=== PATIENT | female | born 1955 | race African-American/Black ===

== ENCOUNTER 2021-11-16 16:57 | Inpatient (IN) ==
[2021-11-16] MEDS ORDERED: NOREPINEPHRINE 8 MG in SODIUM CHLORIDE 0.9% 242 ML IV PRN (17:28)
[2021-11-16] MEDS ORDERED: ALBUTEROL/IPRATROPIUM 3 ML NEB RESP TX PRN (20:27)
[2021-11-16] MEDS ORDERED: ALBUTEROL/IPRATROPIUM 3 ML NEB RESP TX ONE (20:31)
[2021-11-16] MEDS: carvediloL 6.25 MG TABLET PO SCH (22:44)
[2021-11-16] MEDS: MIDODRINE 5 MG TABLET PO SCH (22:44)
[2021-11-17 03:09] LABS: Basophils % 0.1 % (0.0-0.8); Hematocrit 28.6 VOL% (35.7-47.0); Immature Granulocytes % 0.6 %; Immature Granulocytes Absolute 0.06 #; Lymphocytes # 0.6 10*3/uL (1.4-4.0); Lymphocytes % 6.1 % (21.3-54.2); Mean Corpuscular HGB Conc 31.5 GM/DL (32-36); Mean Corpuscular Volume 77.3 FL (87-102); Monocytes # 0.4 10*3/uL (0.11-0.8); Monocytes % 4.7 % (1.7-12.7); NRBC # 0.06 10*3/uL; Neutrophils % 88.5 % (38.7-73.9); Platelet Count 137 T/CUMM (130-400); Red Cell Distribution Width 18.6 % (9.3-17.3); White Blood Count 9.4 T/CUMM (4-12)
[2021-11-17 03:18] LABS: INR 1.2; PT Patient Result 13.4 SECS (10.5-12.0)
[2021-11-17 03:40] LABS: Albumin 2.6 G/DL (3.4-5.0); Bilirubin,Total 0.9 MG/DL (0.20-1.00); Calcium 8.6 MG/DL (8.5-10.1); Osmolality,Calculated 297.3 MOS/KG (273-304); Potassium 4.3 MMOL/L (3.5-5.1); Total Protein 6.9 G/DL (6.4-8.2)
[2021-11-17] MEDS: calcitrioL 0.25 MCG CAPSULE PO SCH (09:42)
[2021-11-17] MEDS: SODIUM BICARBONATE 650 MG TABLET PO SCH (09:42)
[2021-11-17] MEDS: carvediloL 6.25 MG TABLET PO SCH ×2 (09:43→20:01)
[2021-11-17] MEDS: ATORVASTATIN 20 MG TABLET PO SCH (09:43)
[2021-11-17] MEDS: CINACALCET 30 MG TABLET PO SCH (09:43)
[2021-11-17] MEDS: CALCIUM ACETATE 667 MG CAPSULE PO SCH ×3 (09:44→20:01)
[2021-11-17] MEDS: SEVELAMER CARBONATE 800 MG TABLET PO SCH ×3 (09:44→20:01)
[2021-11-17] MEDS: CLOPIDOGREL 75 MG TABLET PO SCH (09:44)
[2021-11-17] MEDS: ASPIRIN EC 81 MG TABLET PO SCH (09:45)
[2021-11-17] MEDS: PREGABALIN 75 MG CAPSULE PO SCH (09:45)
[2021-11-17] MEDS: MIDODRINE 5 MG TABLET PO SCH ×3 (09:45→20:01)
[2021-11-17] MEDS: NICOTINE 21 MG/24 HR PATCH TRANSDERM SCH (09:49)
[2021-11-17] MEDS ORDERED: ZINC OXIDE PASTE 113 GM TUBE TOP PRN (11:29)
[2021-11-17] MEDS: FLUTICASONE 50 MCG NASAL SPRAY 16 GM BOTTLE BOTH NARES SCH (12:10)
[2021-11-17] MEDS: DICLOFENAC 1% GEL 100 GM TUBE TOP SCH ×4 (12:10→20:05)
[2021-11-17 15:55] LABS: Hepatitis B Core IgM Quant 0.08 Index; Hepatitis B Surface Ag Quant < 0.10 Index; Hepatitis B Surface Ag Result Non-Reactive (NonReactive); Hepatitis C Virus Ab Quant < 0.02 Index; Hepatitis C Virus Ab Result Non-Reactive (NonReactive)
[2021-11-17] MEDS: NITROGLYCERIN SL 0.4 MG TABLET SL PRN ×2 (18:10→18:15)
[2021-11-17] MEDS ORDERED: ALUM/MAG/SIMETH/LIDO VISC 1:1 30 ML BOTTLE PO ONE (19:15)
[2021-11-17] MEDS ORDERED: ACETAMINOPHEN 325 MG TABLET PO PRN (23:38)
[2021-11-18 07:41] LABS: Basophils % 0.1 % (0.0-0.8); Eosinophils % 0.2 % (0.00-10.9); Hematocrit 30.7 VOL% (35.7-47.0); Hemoglobin 9.7 GM/DL (12.0-16.0); Immature Granulocytes % 0.5 %; Immature Granulocytes Absolute 0.05 #; Lymphocytes # 0.8 10*3/uL (1.4-4.0); Lymphocytes % 7.9 % (21.3-54.2); Mean Corpuscular HGB Conc 31.6 GM/DL (32-36); Mean Corpuscular Volume 77.9 FL (87-102); Monocytes # 0.9 10*3/uL (0.11-0.8); Monocytes % 8.4 % (1.7-12.7); NRBC # 0.19 10*3/uL; Neutrophils % 82.9 % (38.7-73.9); Platelet Count 141 T/CUMM (130-400); Red Blood Count 3.94 MC/CUMM (3.8-5.5); Red Cell Distribution Width 18.8 % (9.3-17.3); White Blood Count 10.5 T/CUMM (4-12)
[2021-11-18 07:55] LABS: Alanine Aminotransferase 36 U/L (13-56); Albumin 2.7 G/DL (3.4-5.0); Alkaline Phosphatase 124 U/L (45-117); Aspartate Amino Transferase 43 U/L (0-37); Blood Urea Nitrogen < 1 MG/DL (7-18); Calcium 9.2 MG/DL (8.5-10.1); Carbon Dioxide < 1 MMOL/L (21-32); Chloride 104 MMOL/L (98-107); Glucose 123 MG/DL (74-106); Osmolality,Calculated 270.2 MOS/KG (273-304); Potassium 5.3 MMOL/L (3.5-5.1); Sodium 137 MMOL/L (136-145); Total Protein 6.1 G/DL (6.4-8.2)
[2021-11-18 08:06] LABS: % Iron Saturation 16.8 % (18-50); Phosphorous 4.6 MG/DL (2.5-4.9)
[2021-11-18 09:06] LABS: Calcium 9.3 MG/DL (8.5-10.1); Osmolality,Calculated 292.4 MOS/KG (273-304); Potassium 5.6 MMOL/L (3.5-5.1)
[2021-11-18] MEDS ORDERED: SENNA 8.6 MG TABLET PO PRN (09:08)
[2021-11-18] MEDS ORDERED: POLYETHYLENE GLYCOL POWDER 17 GM PACK PO PRN (09:08)
[2021-11-18] MEDS: PREGABALIN 75 MG CAPSULE PO SCH (09:09)
[2021-11-18] MEDS: carvediloL 6.25 MG TABLET PO SCH ×2 (09:09→22:54)
[2021-11-18] MEDS: ATORVASTATIN 20 MG TABLET PO SCH (09:09)
[2021-11-18] MEDS: ASPIRIN EC 81 MG TABLET PO SCH (09:09)
[2021-11-18] MEDS: NICOTINE 21 MG/24 HR PATCH TRANSDERM SCH (09:09)
[2021-11-18] MEDS: FLUTICASONE 50 MCG NASAL SPRAY 16 GM BOTTLE BOTH NARES SCH (09:09)
[2021-11-18] MEDS: CLOPIDOGREL 75 MG TABLET PO SCH (09:10)
[2021-11-18] MEDS: CALCIUM ACETATE 667 MG CAPSULE PO SCH ×3 (09:10→21:18)
[2021-11-18] MEDS: MIDODRINE 5 MG TABLET PO SCH ×3 (09:10→21:18)
[2021-11-18] MEDS: SEVELAMER CARBONATE 800 MG TABLET PO SCH ×3 (09:10→21:18)
[2021-11-18] MEDS: calcitrioL 0.25 MCG CAPSULE PO SCH (09:11)
[2021-11-18] MEDS: SODIUM BICARBONATE 650 MG TABLET PO SCH (09:11)
[2021-11-18] MEDS: DICLOFENAC 1% GEL 100 GM TUBE TOP SCH ×4 (09:11→21:18)
[2021-11-18] MEDS: CINACALCET 30 MG TABLET PO SCH (09:11)
[2021-11-18] MEDS: PANTOPRAZOLE 40 MG TABLET PO SCH ×2 (11:00→21:18)
[2021-11-18] MEDS: ONDANSETRON 4 MG/2 ML VIAL IV PRN (16:31)
[2021-11-19 04:54] LABS: Basophils % 0.1 % (0.0-0.8); Eosinophils % 0.3 % (0.00-10.9); Immature Granulocytes % 0.6 %; Immature Granulocytes Absolute 0.06 #; Lymphocytes # 0.8 10*3/uL (1.4-4.0); Lymphocytes % 8.1 % (21.3-54.2); Mean Corpuscular HGB Conc 31.3 GM/DL (32-36); Mean Corpuscular Volume 77.1 FL (87-102); Monocytes # 0.8 10*3/uL (0.11-0.8); Monocytes % 8.8 % (1.7-12.7); NRBC # 0.18 10*3/uL; Neutrophils % 82.1 % (38.7-73.9); Platelet Count 131 T/CUMM (130-400); Red Blood Count 4.15 MC/CUMM (3.8-5.5); Red Cell Distribution Width 18.6 % (9.3-17.3); White Blood Count 9.2 T/CUMM (4-12)
[2021-11-19 05:10] LABS: Calcium 9.2 MG/DL (8.5-10.1); Osmolality,Calculated 284.5 MOS/KG (273-304); Potassium 4.6 MMOL/L (3.5-5.1)
[2021-11-19 05:27] LABS: Anisocytosis 1+; Hypochromia 1+; Microcytosis 1+; Ovalocytes Slight; Target Cells Few; Tear Drop Cells Slight
[2021-11-19 05:28] LABS: Platelet Estimate Adequate
[2021-11-19] MEDS: CINACALCET 30 MG TABLET PO SCH (08:58)
[2021-11-19] MEDS: SODIUM BICARBONATE 650 MG TABLET PO SCH (08:58)
[2021-11-19] MEDS: NICOTINE 21 MG/24 HR PATCH TRANSDERM SCH (08:58)
[2021-11-19] MEDS: SEVELAMER CARBONATE 800 MG TABLET PO SCH ×3 (08:59→20:34)
[2021-11-19] MEDS: PREGABALIN 75 MG CAPSULE PO SCH (08:59)
[2021-11-19] MEDS: CALCIUM ACETATE 667 MG CAPSULE PO SCH ×3 (08:59→20:34)
[2021-11-19] MEDS: CLOPIDOGREL 75 MG TABLET PO SCH (08:59)
[2021-11-19] MEDS: calcitrioL 0.25 MCG CAPSULE PO SCH (09:00)
[2021-11-19] MEDS: PANTOPRAZOLE 40 MG TABLET PO SCH ×2 (09:00→20:34)
[2021-11-19] MEDS: MIDODRINE 5 MG TABLET PO SCH ×3 (09:00→20:04)
[2021-11-19] MEDS: ASPIRIN EC 81 MG TABLET PO SCH (09:01)
[2021-11-19] MEDS: ATORVASTATIN 20 MG TABLET PO SCH (09:01)
[2021-11-19] MEDS: FLUTICASONE 50 MCG NASAL SPRAY 16 GM BOTTLE BOTH NARES SCH (09:03)
[2021-11-19] MEDS: DICLOFENAC 1% GEL 100 GM TUBE TOP SCH ×4 (09:10→20:35)
[2021-11-19] MEDS: ONDANSETRON 4 MG/2 ML VIAL IV PRN (09:51)
[2021-11-19] MEDS ORDERED: ALBUMIN 25% 25 GM/100 ML VIAL IV ONE ×2 (11:30)
[2021-11-19] MEDS: METOPROLOL TARTRATE 25 MG TABLET PO SCH ×2 (15:12→20:02)
[2021-11-19] MEDS: CALCIUM CARBONATE CHEW 500 MG TABLET PO PRN (16:38)
[2021-11-19] MEDS: ALBUTEROL/IPRATROPIUM 3 ML NEB RESP TX SCH (19:59)
[2021-11-20 05:47] LABS: Calcium 9.4 MG/DL (8.5-10.1); Potassium 5.1 MMOL/L (3.5-5.1)
[2021-11-20] MEDS: ALBUTEROL/IPRATROPIUM 3 ML NEB RESP TX SCH ×4 (07:10→19:55)
[2021-11-20] MEDS: SEVELAMER CARBONATE 800 MG TABLET PO SCH ×3 (08:13→20:46)
[2021-11-20] MEDS: CINACALCET 30 MG TABLET PO SCH (08:13)
[2021-11-20] MEDS: ATORVASTATIN 20 MG TABLET PO SCH (08:14)
[2021-11-20] MEDS: PANTOPRAZOLE 40 MG TABLET PO SCH ×2 (08:14→20:46)
[2021-11-20] MEDS: SODIUM BICARBONATE 650 MG TABLET PO SCH (08:14)
[2021-11-20] MEDS: calcitrioL 0.25 MCG CAPSULE PO SCH (08:14)
[2021-11-20] MEDS: CLOPIDOGREL 75 MG TABLET PO SCH (08:14)
[2021-11-20] MEDS: PREGABALIN 75 MG CAPSULE PO SCH (08:14)
[2021-11-20] MEDS: CALCIUM ACETATE 667 MG CAPSULE PO SCH ×3 (08:14→20:46)
[2021-11-20] MEDS: FERROUS SULFATE 325 MG TABLET PO SCH (08:14)
[2021-11-20] MEDS: ASPIRIN EC 81 MG TABLET PO SCH (08:14)
[2021-11-20] MEDS: MIDODRINE 5 MG TABLET PO SCH ×3 (08:14→20:46)
[2021-11-20] MEDS: NICOTINE 21 MG/24 HR PATCH TRANSDERM SCH (08:15)
[2021-11-20] MEDS: DICLOFENAC 1% GEL 100 GM TUBE TOP SCH ×4 (08:19→20:49)
[2021-11-20] MEDS: FLUTICASONE 50 MCG NASAL SPRAY 16 GM BOTTLE BOTH NARES SCH (08:19)
[2021-11-20] MEDS: METOPROLOL TARTRATE 25 MG TABLET PO SCH ×3 (08:19→21:47)
[2021-11-20 09:11] LABS: Basophils % 0.1 % (0.0-0.8); Eosinophils % 0.3 % (0.00-10.9); Hematocrit 31.4 VOL% (35.7-47.0); Immature Granulocytes % 0.7 %; Immature Granulocytes Absolute 0.06 #; Lymphocytes # 0.7 10*3/uL (1.4-4.0); Lymphocytes % 7.8 % (21.3-54.2); Mean Corpuscular HGB Conc 31.8 GM/DL (32-36); Mean Corpuscular Volume 76.6 FL (87-102); Monocytes # 0.6 10*3/uL (0.11-0.8); Monocytes % 6.2 % (1.7-12.7); NRBC # 0.26 10*3/uL; Neutrophils % 84.9 % (38.7-73.9); Platelet Count 150 T/CUMM (130-400); Red Cell Distribution Width 18.6 % (9.3-17.3); White Blood Count 9.2 T/CUMM (4-12)
[2021-11-20 09:44] LABS: Anisocytosis 2+; Hypochromia Slight; Macrocytosis 1+; Ovalocytes Few; Platelet Estimate Normal; Target Cells 1+
[2021-11-20] MEDS: CALCIUM CARBONATE CHEW 500 MG TABLET PO PRN (12:59)
[2021-11-21] MEDS: ALBUTEROL/IPRATROPIUM 3 ML NEB RESP TX SCH ×4 (00:42→20:04)
[2021-11-21 06:10] LABS: Basophils % 0.1 % (0.0-0.8); Eosinophils # 0.1 10*3/uL (0.0-0.87); Eosinophils % 0.5 % (0.00-10.9); Hematocrit 31.4 VOL% (35.7-47.0); Immature Granulocytes % 0.7 %; Immature Granulocytes Absolute 0.07 #; Lymphocytes # 0.9 10*3/uL (1.4-4.0); Lymphocytes % 8.7 % (21.3-54.2); Mean Corpuscular HGB Conc 31.8 GM/DL (32-36); Mean Corpuscular Volume 77.3 FL (87-102); Monocytes % 9.7 % (1.7-12.7); NRBC # 0.43 10*3/uL; Neutrophils % 80.3 % (38.7-73.9); Platelet Count 152 T/CUMM (130-400); Red Blood Count 4.06 MC/CUMM (3.8-5.5); Red Cell Distribution Width 18.7 % (9.3-17.3); White Blood Count 10.3 T/CUMM (4-12)
[2021-11-21 06:29] LABS: Calcium 10.1 MG/DL (8.5-10.1); Osmolality,Calculated 283.7 MOS/KG (273-304); Potassium 4.7 MMOL/L (3.5-5.1)
[2021-11-21 07:03] LABS: Anisocytosis 2+; Burr Cells Few; Macrocytosis 1+; Platelet Estimate Normal; Target Cells Few
[2021-11-21 07:04] LABS: Schistocytes Few
[2021-11-21] MEDS: CALCIUM ACETATE 667 MG CAPSULE PO SCH ×3 (08:57→20:51)
[2021-11-21] MEDS: CINACALCET 30 MG TABLET PO SCH (08:57)
[2021-11-21] MEDS: NICOTINE 21 MG/24 HR PATCH TRANSDERM SCH (08:57)
[2021-11-21] MEDS: METOPROLOL TARTRATE 25 MG TABLET PO SCH ×2 (08:57→20:51)
[2021-11-21] MEDS: CLOPIDOGREL 75 MG TABLET PO SCH (08:58)
[2021-11-21] MEDS: PREGABALIN 75 MG CAPSULE PO SCH (08:58)
[2021-11-21] MEDS: FERROUS SULFATE 325 MG TABLET PO SCH (08:58)
[2021-11-21] MEDS: ATORVASTATIN 20 MG TABLET PO SCH (08:58)
[2021-11-21] MEDS: ASPIRIN EC 81 MG TABLET PO SCH (08:58)
[2021-11-21] MEDS: SEVELAMER CARBONATE 800 MG TABLET PO SCH ×3 (08:58→20:51)
[2021-11-21] MEDS: calcitrioL 0.25 MCG CAPSULE PO SCH (08:58)
[2021-11-21] MEDS: SODIUM BICARBONATE 650 MG TABLET PO SCH (08:58)
[2021-11-21] MEDS: PANTOPRAZOLE 40 MG TABLET PO SCH ×2 (08:58→20:51)
[2021-11-21] MEDS: MIDODRINE 5 MG TABLET PO SCH ×3 (08:58→20:51)
[2021-11-21] MEDS: DICLOFENAC 1% GEL 100 GM TUBE TOP SCH ×4 (09:01→20:52)
[2021-11-21] MEDS: FLUTICASONE 50 MCG NASAL SPRAY 16 GM BOTTLE BOTH NARES SCH (09:01)
[2021-11-22] MEDS: ALBUTEROL/IPRATROPIUM 3 ML NEB RESP TX SCH ×4 (01:25→19:50)
[2021-11-22] MEDS: METOPROLOL TARTRATE 25 MG TABLET PO SCH ×2 (11:12→22:24)
[2021-11-22] MEDS: NICOTINE 21 MG/24 HR PATCH TRANSDERM SCH (11:13)
[2021-11-22] MEDS: POLYETHYLENE GLYCOL POWDER 17 GM PACK PO SCH (11:13)
[2021-11-22] MEDS: CINACALCET 30 MG TABLET PO SCH (11:14)
[2021-11-22] MEDS: FERROUS SULFATE 325 MG TABLET PO SCH (11:15)
[2021-11-22] MEDS: ATORVASTATIN 20 MG TABLET PO SCH (11:15)
[2021-11-22] MEDS: PANTOPRAZOLE 40 MG TABLET PO SCH ×2 (11:15→22:13)
[2021-11-22] MEDS: CALCIUM ACETATE 667 MG CAPSULE PO SCH ×3 (11:15→22:13)
[2021-11-22] MEDS: PREGABALIN 75 MG CAPSULE PO SCH (11:15)
[2021-11-22] MEDS: MIDODRINE 5 MG TABLET PO SCH ×3 (11:15→22:25)
[2021-11-22] MEDS: SEVELAMER CARBONATE 800 MG TABLET PO SCH ×3 (11:15→22:13)
[2021-11-22] MEDS: ASPIRIN EC 81 MG TABLET PO SCH (11:15)
[2021-11-22] MEDS: SODIUM BICARBONATE 650 MG TABLET PO SCH (11:16)
[2021-11-22] MEDS: calcitrioL 0.25 MCG CAPSULE PO SCH (11:16)
[2021-11-22] MEDS: CLOPIDOGREL 75 MG TABLET PO SCH (11:16)
[2021-11-22] MEDS: FLUTICASONE 50 MCG NASAL SPRAY 16 GM BOTTLE BOTH NARES SCH (11:24)
[2021-11-22] MEDS: DICLOFENAC 1% GEL 100 GM TUBE TOP SCH ×4 (11:24→22:24)
[2021-11-22] MEDS: APIXABAN 5 MG TABLET PO SCH (22:12)
[2021-11-23] MEDS: ALBUTEROL/IPRATROPIUM 3 ML NEB RESP TX SCH ×4 (01:07→19:13)
[2021-11-23] MEDS: CALCIUM CARBONATE CHEW 500 MG TABLET PO PRN (04:11)
[2021-11-23] MEDS ORDERED: AMIODARONE INJ 150 MG in DEXTROSE 5% 100 ML IV ONE (07:23)
[2021-11-23] MEDS ORDERED: AMIODARONE INJ 450 MG in DEXTROSE 5% 241 ML IV SCH ×2 (07:30→16:30)
[2021-11-23] MEDS: POLYETHYLENE GLYCOL POWDER 17 GM PACK PO SCH (10:13)
[2021-11-23] MEDS: FERROUS SULFATE 325 MG TABLET PO SCH (10:14)
[2021-11-23] MEDS: NICOTINE 21 MG/24 HR PATCH TRANSDERM SCH (10:14)
[2021-11-23] MEDS: calcitrioL 0.25 MCG CAPSULE PO SCH (10:14)
[2021-11-23] MEDS: PANTOPRAZOLE 40 MG TABLET PO SCH ×2 (10:14→20:36)
[2021-11-23] MEDS: CALCIUM ACETATE 667 MG CAPSULE PO SCH ×2 (10:14→17:36)
[2021-11-23] MEDS: ATORVASTATIN 20 MG TABLET PO SCH (10:14)
[2021-11-23] MEDS: CINACALCET 30 MG TABLET PO SCH (10:15)
[2021-11-23] MEDS: SODIUM BICARBONATE 650 MG TABLET PO SCH (10:15)
[2021-11-23] MEDS: CLOPIDOGREL 75 MG TABLET PO SCH (10:15)
[2021-11-23] MEDS: PREGABALIN 75 MG CAPSULE PO SCH (10:15)
[2021-11-23] MEDS: SEVELAMER CARBONATE 800 MG TABLET PO SCH ×3 (10:15→20:38)
[2021-11-23] MEDS: APIXABAN 5 MG TABLET PO SCH ×2 (10:16→20:36)
[2021-11-23] MEDS: DICLOFENAC 1% GEL 100 GM TUBE TOP SCH ×4 (10:16→20:36)
[2021-11-23] MEDS: FLUTICASONE 50 MCG NASAL SPRAY 16 GM BOTTLE BOTH NARES SCH (10:16)
[2021-11-23] MEDS: MIDODRINE 5 MG TABLET PO SCH ×4 (10:17→20:36)
[2021-11-23 12:08] VITALS: BP 80/53
[2021-11-23] MEDS: NOREPINEPHRINE 16 MG in SODIUM CHLORIDE 0.9% 234 ML IV PRN (14:59)
[2021-11-23] MEDS: ONDANSETRON 4 MG/2 ML VIAL IV PRN (17:35)
[2021-11-23 23:43] LABS: ABG Base Excess -6.4 MMOL/L (-2.5-2.5); ABG HCO3 19.2 MMOL/L (20-26); ABG Oxygen Saturation 94.9 % (95-100); ABG PCO2 33.3 MM HG (35-48); ABG PH 7.351 (7.35-7.45); ABG PO2 89.5 MM HG (80-95); ABG TCO2 16.6 MMOL/L (23-27); Glucose Heart Surgery 86 MG/DL (74-106); Hematocrit Heart Surgery 34.8 PERCENT (37-47); Hemoglobin Heart Surgery 11.3 G/DL (12.0-16.0)
[2021-11-23 23:45] LABS: Potassium Heart/CVR 6.3 MMOL/L (3.5-5.1)
[2021-11-23] MEDS ORDERED: PHENYLEPHRINE INJ 160 MG in SODIUM CHLORIDE 0.9% 234 ML IV PRN (23:52)
[2021-11-24] MEDS: ALBUTEROL/IPRATROPIUM 3 ML NEB RESP TX SCH (00:01)
[2021-11-24] MEDS ORDERED: ETOMIDATE 20 MG/10 ML VIAL IV ONE (00:22)
[2021-11-24] MEDS ORDERED: ROCURONIUM 100 MG/10 ML VIAL IV ONE (00:22)
[2021-11-24] MEDS: NOREPINEPHRINE 16 MG in SODIUM CHLORIDE 0.9% 234 ML IV PRN ×2 (00:28→02:45)
[2021-11-24] MEDS ORDERED: SODIUM BICARBONATE 50 MEQ/50 ML SYRINGE IV ONE (00:52)
[2021-11-24] MEDS ORDERED: EPINEPHrine 1 MG/ML VIAL ONE (00:53)
[2021-11-24] MEDS ORDERED: CALCIUM CHLORIDE 1,000 MG/10 ML SYRINGE IV ONE ×3 (00:53→02:47)
[2021-11-24 01:35] LABS: ABG HCO3 17.3 MMOL/L (20-26); ABG Oxygen Saturation 99.4 % (95-100); ABG PCO2 39.1 MM HG (35-48); ABG PH 7.262 (7.35-7.45)
[2021-11-24 01:35] LABS: Basophils # 0.1 10*3/uL (0.0-0.2); Basophils % 0.3 % (0.0-0.8); Eosinophils # 0.2 10*3/uL (0.0-0.87); Hematocrit 36.7 VOL% (35.7-47.0); Hemoglobin 11.5 GM/DL (12.0-16.0); Immature Granulocytes % 4.3 %; Immature Granulocytes Absolute 0.61 #; Lymphocytes # 1.4 10*3/uL (1.4-4.0); Lymphocytes % 9.8 % (21.3-54.2); Mean Corpuscular HGB Conc 31.3 GM/DL (32-36); Mean Corpuscular Volume 78.9 FL (87-102); Monocytes # 0.9 10*3/uL (0.11-0.8); Monocytes % 6.6 % (1.7-12.7); NRBC # 2.39 10*3/uL; Platelet Count 206 T/CUMM (130-400); Red Blood Count 4.65 MC/CUMM (3.8-5.5); Red Cell Distribution Width 20.1 % (9.3-17.3); White Blood Count 14.3 T/CUMM (4-12)
[2021-11-24 02:10] LABS: Albumin 2.8 G/DL (3.4-5.0); Bilirubin,Total 2.3 MG/DL (0.20-1.00); Osmolality,Calculated 288.8 MOS/KG (273-304); Total Protein 6.5 G/DL (6.4-8.2)
[2021-11-24 02:13] LABS: Potassium 6.7 MMOL/L (3.5-5.1)
[2021-11-24 02:14] LABS: Band Neutrophils 2 % (0-10); Lymphocytes 12 % (20-55); Nucleated Red Blood Cells 34 (0-5); Total Cells Counted 100
[2021-11-24 02:15] LABS: Platelet Estimate Adequate; Target Cells 1+
[2021-11-24 02:16] LABS: Burr Cells Few; Polychromasia Few
[2021-11-24] MEDS ORDERED: DEXTROSE 50% 25 GM/50 ML SYRINGE IV ONE ×2 (02:28→02:57)
[2021-11-24] MEDS ORDERED: SODIUM BICARBONATE 50 MEQ/50 ML VIAL IV ONE (02:46)
[2021-11-24] MEDS ORDERED: SODIUM CHLORIDE 0.9% 500 ML IV ONE (02:54)
[2021-11-24] MEDS ORDERED: INSULIN REGULAR 100 UNIT/ML IV ONE (02:57)
== END 2021-11-24 03:45 | disposition expired | DRG 291 ==
LOC: SUATTDRO 19:30 → N.ICU 20:39 → N.TELEN 11-19 17:45 → N.ICU 11-23 13:13
PROVIDERS: ADMIT Family Medicine; ATTEND Internal Medicine